=== PATIENT | female | born 1965 | race Caucasian/White ===

== ENCOUNTER → 2016-05-15 | Day surgery (SDC) | payer BC ==
[2016-05-15] VITALS (12 sets, daily range): BP systolic 99–115; BP diastolic 66–79
[~2016-05-15] VITALS: Ht 160 cm; Wt 45.4 kg
[~2016-05-15] MED LIST: ASPIR 8181 MG ORAL; Akten 3.5% 1ml Btl ONE; Alfentanil 2ml Inj ONE; Atropine Inj 1mg/10ml Syr IV PRN; BSS 15ml BTL ONE; BSS 500ml btl ONE; Bupivacaine 0.75% 30ml vial INJ ONE; DOCUSATE SODIU100 MG ORAL; Dexamethasone 4mg/ml vial ONE; DiphenhydrAMINE 50mg/ml Inj IVP PRN; Fluorescein Strips ONE; Hydromorphone 0.5mg/0.5ml inj IVP PRN; Ketorolac 30mg Inj IV PRN; Ketorolac 60mg Inj IV PRN; LIPITOR10 MG ORAL; LORazepam Inj 2mg/ml 1ml IV PRN; LR 1000ml 1,000 ML IVLG SCH; LR 1000ml ONE; Labetalol 5mg/ml 20ml vial IV PRN; Lidocaine 1% MPF 10mg/ml 5ml ONE; Lidocaine 2% 20mg/ml/Epi 0.005mg/ml 20ml vial ONE; MAGNESIUM-VIT1 EACH PO; METOPROLOL SUCC25 MG ORAL; Maxitrol Opth Oint 3.5gm ONE; Maxitrol Opth Susp 5ml ONE; Meperidine 25mg/ml Inj IV PRN; Metoclopramide 10mg/2ml Inj IVP PRN; Midazolam 2mg/2ml Inj IVP PRN; Midazolam 2mg/2ml Inj ONE; NS Irrig 1000ml ONE; Norco 5mg/325mg tab ORAL PRN; Norco 7.5mg/325mg tab ORAL PRN; Oxycodone/Acetaminophen 5-325 ORAL PRN; PROGRAF0.5 MG PO; PROTONIX40 MG ORAL; Povidone-Iodine 5% opth solution ONE; Propofol 10mg/ml 20ml IV ONE; RESTORIL15 MG ORAL; Sodium Hyaluronate 10 mg/ml 0.85ml ONE; Sterile Water Irrig 1000ml IRRIG ONE; Tetracaine 0.5% Opth Soln ONE; ZOFRAN8 MG ORAL; fentaNYL 100 mcg/2 mL IV PRN
[2016-05-15] MEDS: Ciprofloxacin Opth Soln LEFT EYE SCH ×3 (11:20→11:35)
[2016-05-15] MEDS: Akten 3.5% 1ml Btl LEFT EYE SCH ×3 (11:49→11:53)
--- NOTE | 2016-05-15 12:04 | Anethesia Preoperative Eval ---
Anesthesia Pre-op PMH/ROS General Date of Evaluation: May 15, 2016 Time of Evaluation: 12:01 Anesthesiologist: Abelino ASA Score: ASA 3 Mallampati Score Class I : Soft palate, uvula, fauces, pillars visible Class II: Soft palate, uvula, fauces visible Class III: Soft palate, base of uvula visible Class IV: Only hard plate visible Mallampati Classification: Class II Surgeon: Myra Diagnosis: Glaucoma OS Surgical Procedure: Trabeculectomy, Baerveldt Implant OS Anesthesia History: none Family History: no anesthesia problems Allergies: Coded Allergies: Horse Serum Proteins (Verified Allergy, Intermediate, rash, 05/15/16) Medications: see eMAR Past Medical History Cardiovascular: Reports: HTN, other - HL Gastrointestinal/Genitourinary: Reports: CRI - Lupus Nephritis, GERD Neurologic/Psychiatric: Reports: depression/anxiety Endocrine: Reports: DM HEENT: Reports: cataract (L), cataract (R), glaucoma Hematology/Immune: Reports: other - Lupus PSxH Narrative: Pancreatic transplant, R Shoulder ORIF, Vitrectomy Anesthesia Pre-op Phys. Exam Physician Exam Last Vital Signs Date Time Temp Pulse Resp B/P Pulse Ox O2 Delivery O2 Flow Rate FiO2 05/15/16 11:34 97.9 77 18 113/79 100 Room Air Constitutional: NAD Neurologic: CN 2-12 intact Cardiovascular: RRR Respiratory: CTA Gastrointestinal: S/NT/ND Airway Exam Mallampati Score: Class II MO: limited ROM: limited Teeth: intact Anesthesia Pre-op A/P Risk Assessment & Plan Assessment: ASA 3 Plan: GA Status Change Before Surgery: Saurabh Hernández MD May 15, 2016 12:04
--- NOTE | 2016-05-15 12:17 | Pre-Procedure Note/Attestation ---
Pre-Procedure Note/Attestation Complete Prior to Procedure Planned Procedure: left Procedure Narrative: Baerveldt implant, scleral reinforcement, and Trabeculectomy without Mitomycin C Indications for Procedure Pre-Operative Diagnosis: Glaucoma Left eye Attestation I attest that I discussed the nature of the procedure; its benefits; risks and complications; and alternatives (and the risks and benefits of such alternatives ), prior to the procedure, with the patient (or the patient's legal customer solutions representative). I attest that, if there was a reasonable possibility of needing a blood transfusion, the patient (or the patient's legal customer solutions representative) was given the [facility] standardized written summary, pursuant to the [place] Blood Safety Act ([place] Health and Safety Code # 1645, as amended). I attest that I re-evaluated the patient just prior to the surgery and that there has been no change in the patient's H&P, except as documented below: DIGNA COLVIN DO May 15, 2016 12:17
--- NOTE | 2016-05-15 12:19 | General Surgery Progress Note ---
General Surgery-Progress Note Subjective Day of Surgery: 05/15/16 Reason for Consult Uncontrolled Glaucoma OS Procedure Performed Baerveldt implant, scleral reinforcement, and Trabeculectomy without Mitomycin C Left eye Chief Complaint: High eye pressure Objective Last 24 Hour Vital Signs Date Time Temp Pulse Resp B/P Pulse Ox O2 Delivery O2 Flow Rate FiO2 05/15/16 11:34 97.9 77 18 113/79 100 Room Air Dressing: dry Wound: clean Drains: none Respiratory: clear Assessment Post-op Diagnosis Glaucoma OS DIGNA COLVIN DO May 15, 2016 12:19
--- NOTE | 2016-05-15 12:23 | Brief Operative Note ---
Immediate Post Operative Note Operative Note Pre-op Diagnosis: Glaucoma Left eye Procedure: Baerveldt implant, scleral reinforcement, and Trabeculectomy without Mitomycin C Left eye Post-op Diagnosis: Glaucoma OS Post-op Diagnosis: same as pre-op Findings: consistent w/pre-op dx studies Surgeon: Dr. Digna Renteria Anesthesia: MAC Specimen: none Complications: none Estimated Blood Loss: none Implant(s) used?: Yes DIGNA RENTERIA DO May 15, 2016 12:23
--- NOTE | 2016-05-15 12:25 | Discharge Instructions ---
Discharge Instructions Discharge Instructions Follow up with: Dr. Renteria 05/16/16 @ 11:00am Diet: regular Resume Normal Activity?: No Activity: light activity Follow Up Orders See Dr. Renteria tomorrow in his office For Surgical Patients Clean and Dry: surgical site Dressing Care: keep dry and clean May shower: No Contact your physician for: bleeding, pain, yellowish discharge in the op. site For Congestive Heart Failure Reminder Report to your physician any weight gain of 5 pounds or more in one week. DIGNA RENTERIA DO May 15, 2016 12:25
--- NOTE | 2016-05-15 12:41 | Immediate Post-Op Evaluation ---
Immediate Post-Op Evalulation Immediate Post-Op Evalulation Procedure: Trabeculectomy, Baerveldt Implant OS Date of Evaluation: May 15, 2016 Time of Evaluation: 13:29 IV Fluids: 650 LR Blood Products: 0 Estimated Blood Loss: 1 Urinary Output: 0 Blood Pressure Systolic: 105 Blood Pressure Diastolic: 75 Pulse Rate: 86 Respiratory Rate: 16 O2 Sat by Pulse Oximetry: 100 Temperature (Fahrenheit): 98.7 Pain Score (1-10): 1 Nausea: No Vomiting: No Complications 0 Patient Status: awake, reacts, patent, extubated, none Hydration Status: adequate Saurabh Ashley MD May 15, 2016 12:41
--- NOTE | 2016-05-15 12:42 | 48 Hour Post Anesthesia Eval ---
Post Anesthesia Evaluation Procedure: Trabeculectomy, Baerveldt Implant OS Date of Evaluation: May 15, 2016 Time of Evaluation: 15:41 Blood Pressure Systolic: 132 0: 78 Pulse Rate: 82 Respiratory Rate: 18 Temperature (Fahrenheit): 98.6 O2 Sat by Pulse Oximetry: 99 Airway: patent Nausea: No Vomiting: No Pain Intensity: 0 Hydration Status: adequate Cardiopulmonary Status: Stable Mental Status/LOC: patient returned to baseline Follow-up Care/Observations: 0 Post-Anesthesia Complications: 0 Follow-up care needed: ready to discharge Saurabh Ashley MD May 15, 2016 12:42
--- NOTE | 2016-05-15 20:38 | Operative Note - Dictated ---
DATE OF OPERATION: 05/15/2016 PREOPERATIVE DIAGNOSIS: Severe primary open-angle glaucoma of the left eye. POSTOPERATIVE DIAGNOSIS: Severe primary open-angle glaucoma of the left eye.. PROCEDURE: 1. Trabeculectomy without mitomycin-C in the left eye. 2. Increased shunt implant with a . 3. Complete Baerveldt implant of the left eye. SURGEON: Adam Renteria D.O. ANESTHESIA: Monitored anesthesia care. COMPLICATIONS: None. SPECIMENS: None. BLEEDING: None. DESCRIPTION OF PROCEDURE: The patient was brought to the operating room, prepped and draped in the usual sterile manner for a left eye procedure. With the aid of an operating microscope, a lid speculum was placed into the left eye. A paracentesis was created temporally. A corneal shield was placed over the eye. A 6-0 Vicryl suture was passed partial thickness through the superior temporal cornea and used as a traction suture. The eye was rotated down exposing the superior temporal conjunctiva. A 10 millimeters posterior to the limbus an incision was made to the conjunctiva and Tenon's layer. A Baerveldt 350 mm2 was inspected and irrigated and after found to be in good working condition was placed underneath the superior and lateral rectus muscles. The tube was successfully ligated with 7-0 Vicryl suture. The plate was secured to the scleral bed with 8-0 nylon sutures. A 2 millimeter x 2 millimeters scleral flap was outlined at the limbus partial thickness dissection of the scleral flap was performed to the limbus and a stab incision made through the trabecular mesh work and a portion of the trabecular mesh work removed. The scleral flap was sutured down with 10-0 nylon suture. This affected a trabeculectomy without mitomycin-C. Attention was then placed completing the insertion of the aqueous shunt. A 22-gauge needle was used to create a scleral tunnel into the anterior chamber. Care was taken not to injure the iris upon insertion. This maneuver was made more challenging due to the opaque cornea which is awaiting corneal transplant after this maneuver. The tube was successfully sized and shaped with a bevelled edge and placed through the scleral tunnel and the insertion was smooth and even indicating a well placed tubes in the anterior chamber. The tube was secured to the scleral bed with 8-0 Vicryl sutures. Process pericardium after being soaked in Ancef solution sized and shaped and placed over the tube with 4-0 interrupted 8-0 Vicryl sutures. The tenons and conjunctiva layer were then closed in a running fashion with 8-0 Vicryl on a BV needle. The wound was inspected for leaks, there were none. Subconjunctival injections of Decadron and Ancef were given. The lid speculum was removed. A patch and shield placed over the eye. The patient delivered to recovery room good condition. Adam Renteria D.O. DR: Keenan JOB#: [id number] CC:
== END | disposition home or self-care (01) ==
LOC: SUR 10:41
DX: H40.1123 Primary open-angle glaucoma, left eye, severe stage (principal); E78.5 Hyperlipidemia, unspecified; I12.9 Hypertensive chronic kidney disease with stage 1 through stage 4 chronic kidney disease, or unspecified chronic kidney disease; N18.9 Chronic kidney disease, unspecified; M32.14 Glomerular disease in systemic lupus erythematosus; K21.9 Gastro-esophageal reflux disease without esophagitis; E11.9 Type 2 diabetes mellitus without complications; Z94.83 Pancreas transplant status
CPT/HCPCS: 66170; 66179; J0690; J1100; J2250; J2704; J3490; J7120; 94003; 94150